=== PATIENT | male | born 1985 | race Caucasian/White ===

== ENCOUNTER 2021-12-09 04:40 | Emergency (ER) | payer SELFPAY ==
[~2021-12-09] VITALS: Ht 182.9 cm; Wt 108.9 kg
[2021-12-09] MEDS ORDERED: KETOROLAC TROMETHAMINE INJ 60 MG/2 ML VIAL IM ONE ×2 (05:00)
--- NOTE | 2021-12-09 05:02 | NUR ---
BIBS. TO ER BED 9. AAOX4. NOT IN RESP DISTRESS. CAME IN FOR L GROIN AFTER HE TWISTED HIS HIP. PT FELT SOMETHING PULLING. WAS AT THE BEDSIDE FOR EVAL. ORDERS RECEIVED.
--- NOTE | 2021-12-09 05:26 | NUR ---
PT RETURNED TO ER BED [address]
--- NOTE | 2021-12-09 06:42 | NUR ---
DR. LAW MESA ON PHONE CALL WITH RADIOLOGIST
[2021-12-09] MEDS ORDERED: IBUP-1957 PO (07:35)
[2021-12-09] MEDS ORDERED: CYCL5TAB PO (07:35)
[2021-12-09 07:46] VITALS: BP 134/87
--- NOTE | 2021-12-09 07:51 | NUR ---
Patient discharged to home in stable condition. Written and verbal after care instructions given. Patient verbalizes understanding of instruction.
== END 2021-12-09 07:53 | disposition home or self-care (01) ==
LOC: ER 04:48
DX: S76.212A Strain of adductor muscle, fascia and tendon of left thigh, initial encounter (principal); M24.552 Contracture, left hip; X50.1XXA Overexertion from prolonged static or awkward postures, initial encounter; Y93.01 Activity, walking, marching and hiking; Y92.89 Other specified places as the place of occurrence of the external cause; Y99.8 Other external cause status
CPT/HCPCS: 99284; 72192; 96372; J1885